=== PATIENT | female | born 1960 | race Caucasian/White ===

== ENCOUNTER → 2021-10-25 | Outpatient (CLI) | payer MEDICARE, OTHER | LOC: HEART 5 07:36 | DX: R07.9 Chest pain, unspecified (principal); I08.1 Rheumatic disorders of both mitral and tricuspid valves | CPT/HCPCS: 78452; A9502; J2785 ==

== ENCOUNTER 2021-12-13 06:19 | Outpatient (CLI) | payer MEDICARE, OTHER ==
[~2021-12-13] VITALS: Ht 157.5 cm; Wt 72.6 kg
[2021-12-13 07:01] LABS: RED BLOOD COUNT 4.68 M/UL (4.00-5.10); WHITE BLOOD COUNT 7.8 K/UL (4.5-11.0)
[2021-12-13] MEDS ORDERED: HYDROCODON-ACE1 EAC6 PO (07:09)
[2021-12-13] MEDS ORDERED: ISOSORBIDE MONO30 MG PO (07:10)
[2021-12-13] MEDS ORDERED: CLONAZEPAM1 MG PO (07:10)
[2021-12-13] MEDS ORDERED: LOPRESSOR 25 MG25 MG PO (07:12)
[2021-12-13] MEDS ORDERED: ESOMEPRAZOLE MA40 MG PO (07:13)
[2021-12-13] MEDS ORDERED: FAMOTIDINE20 MG PO (07:13)
[2021-12-13] MEDS ORDERED: ASPIRIN EC81 MG PO (07:14)
[2021-12-13] MEDS ORDERED: CALCIUM CARBON600 M1 PO (07:15)
[2021-12-13] MEDS ORDERED: CYMBALTA 20 MG20 MG PO (07:15)
[2021-12-13] MEDS ORDERED: NEURONTIN300 MG PO (07:16)
[2021-12-13] MEDS ORDERED: LASIX TAB 20 MG20 MG PO (07:16)
[2021-12-13] MEDS ORDERED: HYDROCHLOROTHIA25 MG PO (07:17)
[2021-12-13] MEDS ORDERED: VISTARIL 50 MG50 MG PO (07:17)
[2021-12-13] MEDS ORDERED: BONIVA150 MG PO (07:18)
[2021-12-13] MEDS ORDERED: IBUPROFEN800 MG PO (07:18)
[2021-12-13] MEDS ORDERED: LACTULOSE10 GM/151 PO (07:19)
[2021-12-13] MEDS ORDERED: LINZESS290 MCG PO (07:19)
[2021-12-13] MEDS ORDERED: CLARITIN10 M2 PO (07:20)
[2021-12-13] MEDS ORDERED: MAGNESIUM OXID400 M1 PO (07:20)
[2021-12-13] MEDS ORDERED: NITROGLYCERIN0.4 MG SL (07:21)
[2021-12-13] MEDS ORDERED: MEDROL TAB 4 MG4 MG PO (07:21)
[2021-12-13] MEDS ORDERED: OXYBUTYNIN CHLO15 MG PO (07:22)
[2021-12-13] MEDS ORDERED: RIZATRIPTAN10 MG PO (07:22)
[2021-12-13] MEDS ORDERED: TOLTERODINE TART2 MG PO (07:23)
[2021-12-13] MEDS ORDERED: TOPIRAMATE25 MG PO (07:23)
[2021-12-13] MEDS ORDERED: QUETIAPINE FUMA25 MG PO (07:24)
[2021-12-13] MEDS ORDERED: ZOFRAN ODT 4 MG4 MG PO (07:24)
[2021-12-13] MEDS ORDERED: OMEGA-3 ACID ETH1 GM PO (07:25)
[2021-12-13] MEDS ORDERED: OMEPRAZOLE20 M1 PO (07:26)
[2021-12-13] MEDS ORDERED: VOLTAREN ARTHRI20 GM TP (07:27)
[2021-12-13] MEDS ORDERED: VITAMIN B-121000 MC1 PO (07:28)
[2021-12-13 07:34] LABS: BUN/CREATININE RATIO 21 (0-10)
[2021-12-13] MEDS ORDERED: ESCITALOPRAM OX20 MG PO (13:24)
[2021-12-13] MEDS ORDERED: MELOXICAM7.5 MG PO (13:25)
[2021-12-13 18:18] LABS: HEMOGLOBIN 12.8 gm/dl (12.3-15.3); RED BLOOD COUNT 4.26 M/UL (4.00-5.10); WHITE BLOOD COUNT 8.9 K/UL (4.5-11.0)
[2021-12-14 02:08] LABS: HEMOGLOBIN 13.4 gm/dl (12.3-15.3); RED BLOOD COUNT 4.55 M/UL (4.00-5.10); WHITE BLOOD COUNT 8.9 K/UL (4.5-11.0)
[2021-12-14] MEDS ORDERED: ATORVASTATIN CA40 MG PO (10:30)
[2021-12-14] MEDS ORDERED: BRILINTA 90 MG90 MG PO (10:30)
== END 2021-12-14 10:51 | disposition home or self-care (01) ==
LOC: CATH 06:19 → PROG CARE 12:11 → CATH 12-14 10:51
PROVIDERS: Internal Medicine Cardiovascular Disease
DX: I25.118 Atherosclerotic heart disease of native coronary artery with other forms of angina pectoris (principal); Q21.1 Atrial septal defect; E78.5 Hyperlipidemia, unspecified; I10 Essential (primary) hypertension; Z79.82 Long term (current) use of aspirin; Z79.899 Other long term (current) drug therapy
CPT/HCPCS: 36415; 71045; 80048; 85025; 85027; 85347; 85610; 85730; 92978; 93005; 99152; 99153; C1725; C1753; C1769; C1874; C1887; C1894; C9600; J1644; J2250; J3010; Q9967